=== PATIENT | female | born 1980 | race Caucasian/White ===

== ENCOUNTER 2017-05-15 01:51 | Emergency (ER) | payer SELFPAY ==
--- NOTE | 2017-05-15 03:27 | ER Document Report ---
ED Medical Screen (RME) - General Chief Complaint: Low Back Pain Stated Complaint: BACK PAIN Time Seen by Provider: 05/15/17 03:26 Mode of Arrival: Ambulatory Information source: Patient Notes: 2-year-old female presents to ED for back pain and pelvic pain. She states she 6 weeks . She is 10 para 6 with 3 miscarriages. She denies any vaginal bleeding. She states she does have some nausea no vomiting. States she usually takes Zofran for her nausea and . Has not had a confirmation test states she took home test. I have greeted and performed a rapid initial assessment of this patient. A comprehensive ED assessment and evaluation of the patient, analysis of test results and completion of medical decision making process will be conducted by an additional ED providers. TRAVEL OUTSIDE OF THE [place] IN LAST 30 DAYS: No - Related Data Allergies/Adverse Reactions: acetaminophen [From [place]] Adverse Reaction (Verified 09/23/12 11:37) itching hydrocodone bitartrate [From [place]] Adverse Reaction (Verified 09/23/12 11:37) itching Past Medical History Renal/ Medical History: Denies: Hx Peritoneal Dialysis Past Surgical History: Reports: Hx Gynecologic Surgery - D&C, Hx Tonsillectomy - Immunizations Hx Diphtheria, Pertussis, Tetanus Vaccination: Yes Physical Exam - Vital signs Vitals: Temp Pulse Resp BP Pulse Ox 98.5 F 73 16 137/67 H 100 05/15/17 02:07 05/15/17 02:07 05/15/17 02:07 05/15/17 02:07 05/15/17 02:07 Course - Vital Signs Vital signs: Temp Pulse Resp BP Pulse Ox 98.5 F 73 16 137/67 H 100 05/15/17 02:07 05/15/17 02:07 05/15/17 02:07 05/15/17 02:07 05/15/17 02:07
[2017-05-15] MEDS ORDERED: ONDANSETRON 4 MG TAB.RAPDIS PO ONE (03:32)
[2017-05-15 03:33] LABS: APPEARANCE,URINE CLEAR; BILIRUBIN,URINE NEGATIVE (NEGATIVE); GLUCOSE, URINE NEGATIVE (NEGATIVE); KETONES,URINE NEGATIVE (NEGATIVE); LEUKOCYTE ESTERASE,URINE TRACE (NEGATIVE); NITRITE,URINE NEGATIVE (NEGATIVE); PROTEIN,URINE NEGATIVE (NEGATIVE); URINE SPECIFIC GRAVITY 1.026; UROBILINOGEN,URINE NEGATIVE mg/dL (<2.0)
--- NOTE | 2017-05-15 03:57 | ER Document Report ---
ED General - General Chief Complaint: Low Back Pain Stated Complaint: BACK PAIN Time Seen by Provider: 05/15/17 03:26 Mode of Arrival: Ambulatory Notes: There is a 36-year-old female who presents with complaint of and pain in her abdomen and back. No vaginal bleeding. No abnormal discharge. No vomiting. No fevers. This is her 10th . She is 6 kids and has had 3 miscarriages. All 3 of her miscarriages were in the first trimester. Pain started today. No other complaints at this time. TRAVEL OUTSIDE OF THE [place] IN LAST 30 DAYS: No - Related Data Allergies/Adverse Reactions: acetaminophen [From [place]] Adverse Reaction (Verified 09/23/12 11:37) itching hydrocodone bitartrate [From [place]] Adverse Reaction (Verified 09/23/12 11:37) itching Past Medical History - General Information source: Patient - Social History Smoking Status: Unknown if Ever Smoked Frequency of alcohol use: None Drug Abuse: None Family History: Reviewed & Not Pertinent Patient has suicidal ideation: No Patient has homicidal ideation: No Renal/ Medical History: Denies: Hx Peritoneal Dialysis Past Surgical History: Reports: Hx Gynecologic Surgery - D&C, Hx Tonsillectomy - Immunizations Hx Diphtheria, Pertussis, Tetanus Vaccination: Yes Review of Systems - Review of Systems Notes: My Normal Review Basic REVIEW OF SYSTEMS: CONSTITUTIONAL : Denies fever, chills, or sweats. Denies recent illness. RESPIRATORY: Denies cough, cold, or chest congestion. Denies shortness of breath, difficulty breathing, or wheezing. GASTROINTESTINAL: has abdominal pain. Denies nausea, vomiting, or diarrhea. Denies constipation. Last BM: GENITOURINARY: Denies difficulty urinating, painful urination, burning, frequency, or blood in urine. FEMALE GENITOURINARY: No vaginal discharge or bleeding. Currently . Last menstrual period was April 01. MUSCULOSKELETAL: Denies neck or back pain or joint pain or swelling. SKIN: Denies rash or skin lesions. NEUROLOGICAL: Denies altered mental status or loss of consciousness. Denies headache. Denies weakness or paralysis or loss of use of either side. Denies problems with gait or speech. Denies sensory or motor loss. ALL OTHER SYSTEMS REVIEWED AND NEGATIVE. Physical Exam - Vital signs Vitals: Temp Pulse Resp BP Pulse Ox 98.5 F 73 16 137/67 H 100 05/15/17 02:07 05/15/17 02:07 05/15/17 02:07 05/15/17 02:07 05/15/17 02:07 - Notes Notes: General Appearance: Well nourished, alert, cooperative, no acute distress, no obvious discomfort.well appearing. Vitals: reviewed, See vital signs table. Head: no swelling or tenderness to the head Eyes: PERRL, EOMI, Conjuctiva clear Lungs: No wheezing, No rales, No rhonci, No accessory muscle use, good air exchange bilaterally. Heart: Normal rate, Regular rythm, No murmur, no rub Abdomen: Normal BS, soft, No rigidity, mild suprapubic abdominal tenderness to palpation, No guarding, no rebound, no abdominal masses, no organomegaly Extremities: strength 5/5 in all extremities, good pulses in all extremities, no swelling or tenderness in the extremities, no edema. Skin: warm, dry, appropriate color, no rash Neuro: speech clear, oriented x 3, normal affect, responds appropriately to questions. Course - Re-evaluation Re-evalutation: 05/15/17 05:19 Patient has gestational sac, but no IUP as of yet. Her hCG is only 1088. I informed her that this could represent a is not developing appropriately and well and a miscarriage or could just represent very early . I informed her she should return to the ER in 3 days to repeat her hCG level and this will give us a better idea as to what is going on. She does not have large amount of pain. Abdomen is very soft minimally tender. I think ectopic is highly unlikely at this time; however, I informed her that she must return to ER immediately if she has worsening pain, vaginal bleeding, or feels that her symptoms are worsening. Patient agrees with plan and will be discharged home. Dictation of this chart was performed using voice recognition software; therefore, there may be some unintended grammatical errors. - Vital Signs Vital signs: Temp Pulse Resp BP Pulse Ox 98.5 F 73 16 137/67 H 100 05/15/17 02:07 05/15/17 02:07 05/15/17 02:07 05/15/17 02:07 05/15/17 02:07 - Laboratory Result Diagrams: 05/15/17 04:01 Laboratory results interpreted by me: 05/15/17 05/15/17 05/15/17 02:55 04:01 04:01 WBC 14.8 H Absolute Neutrophils 9.3 H Beta HCG, Quant 1089.40 H Urine Blood MODERATE H Ur Leukocyte Esterase TRACE H Discharge - Discharge Clinical Impression: Abdominal pain during Qualifiers: Trimester: first trimester Qualified Code(s): O26.891 - Other specified related conditions, first trimester Condition: Good Disposition: HOME, SELF-CARE Additional Instructions: Currently your HCG level is 1088. We typically do not see a fetus until it is at least 1500 to 2000. Currently we can see a gestational sac on your ultrasound. Since you are early we can not tell if you just has a normal early or if you have an abnormal . Please return to the ER in 3 days so we can recheck your HCG level to see if it is increasing or decreasing. This will help us determine if your is progressing appropriately. Please return to the ER immediately if you have worsening pain, vaginal bleeding , or if you feel unwell. Please take a vitamin everyday.
[2017-05-15 04:19] LABS: ABSOLUTE BASOPHILS # (AUTO) 0.1 10^3/uL (0.0-0.2); ABSOLUTE LYMPHOCYTES (AUTO) 4.7 10^3/uL (0.5-4.7); ABSOLUTE MONOCYTES (AUTO) 0.7 10^3/uL (0.1-1.4); ABSOLUTE NEUT (AUTO) 9.3 10^3/uL (1.7-8.2); BASOPHILS % (AUTO) 0.5 % (0-2); EOSINOPHILS % (AUTO) 0.2 % (0-6); HEMATOCRIT 39.7 % (36.0-47.0); HEMOGLOBIN 13.5 g/dL (12.0-15.5); HGB HCT DIFFERENCE 0.8; LYMPHOCYTES % (AUTO) 31.6 % (13-45); MEAN CORPUSCULAR HEMOGLOBIN 30.7 pg (27.0-33.4); MEAN CORPUSCULAR VOLUME 90 fl (80-97); MONOCYTES % (AUTO) 4.7 % (3-13); RED BLOOD COUNT 4.41 10^6/uL (3.72-5.28); RED CELL DISTRIBUTION WIDTH 12.6 % (11.5-14.0); WHITE BLOOD COUNT 14.8 10^3/uL (4.0-10.5)
--- NOTE | 2017-05-15 05:06 | RADIOLOGY REPORT (SQ) ---
EXAM DESCRIPTION: U/S OB TRANSVAGINAL W/O DOP COMPLETED DATE/TIME: 05/15/2017 4:52 am REASON FOR STUDY: pelvic pain COMPARISON: 02/09/2012. TECHNIQUE: Transvaginal static and realtime grayscale images acquired of the pelvis. Additional carlene cted spectral and color Doppler images recorded. All images stored on PACs. BHCG: Not available. LIMITATIONS: None. FINDINGS: UTERUS: No definite visualized intrauterine . An intrauterine sac measures 0.6 c m in mean sac diameter with likely decidual reaction; if viable gestational age would correspond with 5 weeks and 2 days with an CINTHIA of 01/13/2018. RIGHT ADNEXA: Ovary not identified. No adnexal free fluid. No adnexal masses. LEFT ADNEXA: Ovary not identified. No adnexal free fluid. No adnexal masses. FREE FLUID: None. OTHER: Cervical length is 2.4 cm. Nabothian cysts. EGA: 5 weeks 2 days CINTHIA: 01/13/2018 IMPRESSION: No definite visualized intrauterine . An intrauterine sac measures 0.6 cm in me an sac diameter with likely decidual reaction; if viable gestational age would correspond with 5 week s and 2 days with an CINTHIA of 01/13/2018. ECTOPIC CANNOT BE EXCLUDED. FOLLOW-UP ULTRASOUND AND SERIAL BHCG LEVELS STRONGLY RECOMMENDED TO ACCURATELY ASSESS STATU S. TECHNICAL DOCUMENTATION: JOB ID: [id number] [employer]- All Rights Reserved
[2017-05-15 05:21] VITALS: BP 124/70
== END 2017-05-15 05:18 | disposition home or self-care (01) ==
LOC: ER 01:51
DX: O26.891 Other specified pregnancy related conditions, first trimester (principal); M54.5 Low back pain; Z88.6 Allergy status to analgesic agent
CPT/HCPCS: 99284; 36415; 84702; 85025; 81001; 76817; S0119

== ENCOUNTER 2018-01-16 10:18 | Outpatient (CLI) | payer MEDICAID ==
--- NOTE | 2018-01-16 11:07 | Non Stress Test Report ---
Non Stress Test Datetime Report Generated by CPN: 01/16/2018 11:07 DEMOGRAPHIC EGA NST: 34.4 INDICATION Indication for Study: Diabetes Mellitus MONITORING Monitor Explained: Monitor Explained; Test Explained; Patient Verbalized Understanding Time on Monitor: 01/16/2018 10:27 Time off Monitor: 01/16/2018 10:57 NST Duration: 30 NST INTERVENTIONS NST Interventions: PO Hydration; Reposition Patient Physician Notified NST: A Emmel CNM BABY A: [id number] BABY A Movement : Present Contraction Frequency : x0 FHR Baseline : 145 Accelerations : 15X15 Decelerations : None Variability : Moderate 6-25bpm NST Review: Meets Criteria for Reactive NST NST Review and Verified By : Celestino Wan RN NST Results: Reactive NST REPORT Report Trigger: Send Report
== END 2018-01-16 11:05 | disposition home or self-care (01) ==
LOC: LC 10:18
PROVIDERS: ATTEND Obstetrics & Gynecology
PROC: 4A1HXCZ Monitoring of Products of Conception, Cardiac Rate, External Approach (ICD-10-PCS; principal; 2018-01-16)
DX: O24.419 Gestational diabetes mellitus in pregnancy, unspecified control (principal); O09.523 Supervision of elderly multigravida, third trimester; Z3A.34 34 weeks gestation of pregnancy
CPT/HCPCS: 59025

== ENCOUNTER 2018-01-18 15:54 | Outpatient (CLI) | payer MEDICAID ==
--- NOTE | 2018-01-18 17:38 | Non Stress Test Report ---
Non Stress Test Datetime Report Generated by CPN: 01/18/2018 17:38 DEMOGRAPHIC EGA NST: 34.6 INDICATION Indication for Study: Ordered by Provider MONITORING Monitor Explained: Monitor Explained; Test Explained; Patient Verbalized Understanding Time on Monitor: 01/18/2018 16:13 Time off Monitor: 01/18/2018 16:36 NST Duration: 23 NST INTERVENTIONS NST Interventions: PO Hydration; Reposition Patient Physician Notified NST: A. Campos, CNM, provider reviewed BABY A: [id number] BABY A Movement : Present Contraction Frequency : None FHR Baseline : 145 Accelerations : 15X15 Decelerations : None Variability : Moderate 6-25bpm NST Review: Meets Criteria for Reactive NST NST Review and Verified By : Gricel Camp RNC NST Results: Reactive NST REPORT Report Trigger: Send Report
[2018-01-18 17:40] LABS: URINE CREATININE 219.6 mg/dL (16-327); URINE PROTEIN 10.7 mg/dL (<12)
[2018-01-18 17:47] LABS: ABSOLUTE BASOPHILS # (AUTO) 0.1 10^3/uL (0.0-0.2); ABSOLUTE MONOCYTES (AUTO) 0.6 10^3/uL (0.1-1.4); ABSOLUTE NEUT (AUTO) 9.2 10^3/uL (1.7-8.2); BASOPHILS % (AUTO) 0.5 % (0-2); EOSINOPHILS % (AUTO) 0.2 % (0-6); HEMATOCRIT 35.5 % (36.0-47.0); HEMOGLOBIN 12.6 g/dL (12.0-15.5); LYMPHOCYTES % (AUTO) 23.5 % (13-45); MEAN CORPUSCULAR HEMOGLOBIN 31.1 pg (27.0-33.4); MEAN CORPUSCULAR HGB CONC 35.5 g/dL (32.0-36.0); MEAN CORPUSCULAR VOLUME 88 fl (80-97); MONOCYTES % (AUTO) 4.7 % (3-13); PLATELET COUNT 230 10^3/uL (150-450); RED BLOOD COUNT 4.05 10^6/uL (3.72-5.28); RED CELL DISTRIBUTION WIDTH 12.9 % (11.5-14.0); SEGMENTED NEUTROPHILS % (AUTO) 71.1 % (42-78); TOTAL CELLS COUNTED % (AUTO) 100 %; WHITE BLOOD COUNT 12.9 10^3/uL (4.0-10.5)
[2018-01-18 18:13] LABS: ALANINE AMINOTRANSFERASE 26 U/L (9-52); ALKALINE PHOSPHATASE 91 U/L (38-126); ANION GAP 7 (5-19); ASPARTATE AMINO TRANSFERASE 16 U/L (14-36); BILIRUBIN,DIRECT 0.2 mg/dL (0.0-0.4); BILIRUBIN,TOTAL 0.2 mg/dL (0.2-1.3); BLOOD UREA NITROGEN 7 mg/dL (7-20); CALCIUM 9.2 mg/dL (8.4-10.2); CARBON DIOXIDE 21 mmol/L (22-30); CHLORIDE 107 mmol/L (98-107); GLUCOSE 75 mg/dL (75-110); LDH 311 U/L (313-618); POTASSIUM 3.7 mmol/L (3.6-5.0); SODIUM 135.4 mmol/L (137-145); TOTAL PROTEIN 5.6 g/dL (6.3-8.2)
[2018-01-18 18:23] LABS: APPEARANCE,URINE SLIGHTLY-CLOUDY; BILIRUBIN,URINE NEGATIVE (NEGATIVE); COLOR,URINE YELLOW; GLUCOSE, URINE NEGATIVE (NEGATIVE); KETONES,URINE NEGATIVE (NEGATIVE); LEUKOCYTE ESTERASE,URINE NEGATIVE (NEGATIVE); NITRITE,URINE NEGATIVE (NEGATIVE); PROTEIN,URINE 30 mg/dL (NEGATIVE); URINE SPECIFIC GRAVITY 1.029
[2018-01-18 18:28] LABS: URINE AMPHETAMINES SCREEN NEGATIVE; URINE BARBITURATES SCREEN NEGATIVE; URINE BENZODIAZEPINES SCREEN NEGATIVE; URINE COCAINE SCREEN NEGATIVE; URINE MARIJUANA (THC) SCREEN NEGATIVE; URINE METHADONE SCREEN NEGATIVE; URINE PHENCYCLIDINE SCREEN NEGATIVE
== END 2018-01-18 18:36 | disposition home or self-care (01) ==
LOC: LC 15:54
PROVIDERS: ATTEND Student in an Organized Health Care Education/Training Program
PROC: 4A1HXCZ Monitoring of Products of Conception, Cardiac Rate, External Approach (ICD-10-PCS; principal; 2018-01-18)
DX: O14.93 Unspecified pre-eclampsia, third trimester (principal); O24.419 Gestational diabetes mellitus in pregnancy, unspecified control; Z3A.34 34 weeks gestation of pregnancy
CPT/HCPCS: 36415; 59025; 80053; 80307; 81001; 82570; 83615; 84156; 84550; 85025

== ENCOUNTER 2018-02-19 06:31 | Inpatient (IN) | payer MEDICAID ==
[2018-02-19] MEDS ORDERED: RINGERS SOLUTION,LACTATED 300 ML IV ONE (06:49)
[2018-02-19] MEDS ORDERED: OXYTOCIN/NORMAL SALINE 20 UNIT/1,000 ML RTUINJ IV PRN ×2 (06:49→17:57)
[2018-02-19] MEDS ORDERED: RINGERS SOLUTION,LACTATED 1,000 ML IV PRN (06:49)
--- NOTE | 2018-02-19 06:59 | Admission Physical ---
Datetime Report Generated by CPN: 02/19/2018 06:58 CURRENT ADMISSION Chief Complaint: Scheduled Induction of Labor Indication for Induction: Maternal Diabetes Indication for Induction- Other: AMA Admit Impression : Term, Intrauterine ; Induction of Labor Admit Plan: Admit to Unit; Initiate Labor Induction Protocol ALLERGIES Medication Allergies: Yes Medication Allergies: hydrocodone bitartrate/MO/itching (02/19/2018); acetaminophen/MO/itching (02/19/2018) Latex: No Latex Allergies OBSTETRICAL HISTORY EDC: 02/23/2018 00:00 : 11 Para: 6 Term: 6 : 0 SAB: 4 IAB: 0 Ectopic: 0 Livin Cesareans: 0 VBACs: 0 Multiple Births: 0 Gestational Diabetes: Yes Rh Sensitization: No Incompetent Cervix: No NIKI: No Infertility: No ART Treatment: No Uterine Anomaly: No IUGR: No Hx Previous C/S: No Macrosomia: No Hx Loss/Stillborn: No PIH: Yes Hx : No Placenta Previa/Abruption: No Depression/PP Depression: Yes PTL/PROM: No Post Hemorrhage: No Current Procedures: Ultrasound; NST SEE RECORDS Alcohol: No Marijuana : No Cocaine: No Other Illicit Drugs: No Cigarettes: Former Smoker. [id number] MEDICAL HISTORY Diabetes: Yes Diabetes Type: Gestational Diabetes Blood Transfusion: No Pulmonary Disease (Asthma, TB): No Breast Disease: No Hypertension: No Labor Relations Manager Surgery: No Heart Disease: No Hosp/Surgery: Yes Autoimmune Disorder: No Anesthetic Complications: No Kidney Disease: No Abnormal Pap Smear: No Neuro/Epilepsy: No Psychiatric Disorders: No Other Medical Diseases: No Hepatitis/Liver Disease: No Significant Family History: No Varicosities/Phlebitis: No Trauma/Violence : No Thyroid Dysfunction: No Medical History Comments: tonsillectomy 1989, D_C 2005 INFECTIOUS HISTORY Gonorrhea: No Genital Herpes: No Chlamydia: No Tuberculosis: No Syphilis: No Hepatitis: No HIV/AIDS Exposure: No Rash or Viral Illness: No HPV: No PHYSICAL EXAM General: Normal HEENT: Normal Neurologic: Normal Thyroid: Normal Heart: Normal Lungs: Normal Breast: Normal Back: Normal Abdomen: Normal Genitourinary Exam: Normal Extremities: Normal DTRs: Normal Pelvic Type: Adequate Vital Signs: Reviewed; Within Normal Limits VAGINAL EXAM Dilatation: 2 Effacement: 50 Station: -2 MEMBRANES Pooling: Negative Membranes: Intact FETUS A EGA: 39.3 Monitoring: External US FHR- Baseline: 130 Variability: Moderate 6-25bpm Accelerations: 15X15 Decelerations: None FHR Category: Category I Estimated Weight (gm): 3700 Presentation: Vertex PLANS FOR LABOR AND DELIVERY Labor and Delivery: Placenta Request Pain Management: Epidural Feeding Preference: Breast Benefit of Breast Feed Discussed: Yes Circumcision: N/A INFORMED CONSENT Signature: with User ID: [email or web address]
[2018-02-19 07:23] LABS: ABSOLUTE BASOPHILS # (AUTO) 0.1 10^3/uL (0.0-0.2); ABSOLUTE LYMPHOCYTES (AUTO) 2.4 10^3/uL (0.5-4.7); ABSOLUTE MONOCYTES (AUTO) 0.4 10^3/uL (0.1-1.4); ABSOLUTE NEUT (AUTO) 7.2 10^3/uL (1.7-8.2); BASOPHILS % (AUTO) 0.9 % (0-2); EOSINOPHILS % (AUTO) 0.4 % (0-6); HEMATOCRIT 35.6 % (36.0-47.0); HEMOGLOBIN 12.5 g/dL (12.0-15.5); LYMPHOCYTES % (AUTO) 23.5 % (13-45); MEAN CORPUSCULAR HEMOGLOBIN 30.7 pg (27.0-33.4); MEAN CORPUSCULAR VOLUME 88 fl (80-97); PLATELET COUNT 200 10^3/uL (150-450); RED BLOOD COUNT 4.07 10^6/uL (3.72-5.28); RED CELL DISTRIBUTION WIDTH 13.4 % (11.5-14.0); SEGMENTED NEUTROPHILS % (AUTO) 71.2 % (42-78); TOTAL CELLS COUNTED % (AUTO) 100 %; WHITE BLOOD COUNT 10.2 10^3/uL (4.0-10.5)
[2018-02-19 07:42] LABS: APPEARANCE,URINE CLOUDY; BILIRUBIN,URINE NEGATIVE (NEGATIVE); COLOR,URINE YELLOW; GLUCOSE, URINE NEGATIVE (NEGATIVE); KETONES,URINE NEGATIVE (NEGATIVE); LEUKOCYTE ESTERASE,URINE TRACE (NEGATIVE); NITRITE,URINE NEGATIVE (NEGATIVE); PROTEIN,URINE 100 mg/dL (NEGATIVE); URINE SPECIFIC GRAVITY 1.025; UROBILINOGEN,URINE NEGATIVE mg/dL (<2.0)
[2018-02-19 07:57] LABS: URINE AMPHETAMINES SCREEN NEGATIVE; URINE BARBITURATES SCREEN NEGATIVE; URINE BENZODIAZEPINES SCREEN NEGATIVE; URINE COCAINE SCREEN NEGATIVE; URINE MARIJUANA (THC) SCREEN NEGATIVE; URINE METHADONE SCREEN NEGATIVE; URINE PHENCYCLIDINE SCREEN NEGATIVE
[2018-02-19] MEDS ORDERED: OXYTOCIN/NORMAL SALINE 20 UNIT/1,000 ML RTUINJ ONE ×2 (08:58→18:42)
[2018-02-19] MEDS ORDERED: MISOPROSTOL 0.2 MG TABLET ONE (08:58)
[2018-02-19] MEDS ORDERED: LIDOCAINE 1% INJ-PF (10 MG/ML) 30 ML SDV ONE (08:58)
--- NOTE | 2018-02-19 12:59 | L&D Progress Notes ---
PROGRESS NOTES Datetime Report Generated by CPN: 02/19/2018 12:59 PROGRESS NOTE Impression: Reassuring Heart Rate Procedures: Artificial ROM Plan: Induction Informed Consent Obtained: Vaginal Delivery Vital Signs : Reviewed Comment: Pt coping well with ctx AROM, clear Continue pit Anticipate VAGINAL EXAM Dilatation: 3 Dilatation: 2 Effacement: 50 Effacement: 50 Station: -2 Station: -2 Contractions: 2-4 MEMBRANES Pooling: Negative Membranes: Ruptured Membranes: Intact Amniotic Fluid Color: Clear FETUS A FHR - Baseline: 140 Variability: Moderate 6-25bpm Accelerations: 15X15 Decelerations: None FHR Category: Category I : 39.3 Estimated Weight (gm): 3700 Presentation: Vertex SIGNATURE SIGNATURE: [id number] SIGNATURE: [id number] SIGNATURE: [id number] SIGNATURE: [id number] Assignment: Orlin Tate MD Signature: with User ID: [email or web address] : with User ID: Bobby
[2018-02-19] MEDS ORDERED: FENTANYL/BUPIVACAINE/NS/PF 200 MCG/100 ML RTUINJ EPI ONE (13:50)
[2018-02-19] MEDS ORDERED: PHENYLEPHRINE HCL INJ/PF 10 MG/1 ML SDV ONE (13:50)
[2018-02-19] MEDS ORDERED: EPHEDRINE SULFATE INJ 50 MG/1 ML AMPULE ONE (13:50)
[2018-02-19] MEDS ORDERED: FENTANYL CITRATE INJ/PF 100 MCG/2 ML AMPUL ONE (13:50)
[2018-02-19] MEDS ORDERED: BUPIVACAINE HCL 0.25 % INJ/PF (2.5 MG/1 ML) 30 ML VIAL ONE (13:51)
[2018-02-19] MEDS ORDERED: DIPHENHYDRAMINE HCL 25 MG CAPSULE ONE (16:43)
[2018-02-19] MEDS ORDERED: ACETAMINOPHEN WITH CODEINE #3 TABLET PO PRN (17:57)
[2018-02-19] MEDS ORDERED: ZOLPIDEM TARTRATE 5 MG TABLET PO PRN (17:57)
[2018-02-19] MEDS ORDERED: DIBUCAINE 1% OINTMENT 28 GM TP PRN (17:57)
[2018-02-19] MEDS ORDERED: BENZOCAINE/MENTHOL AEROSOL SPRAY 56 ML TOP PRN (17:57)
[2018-02-19] MEDS ORDERED: MEASLES,MUMPS&RUBELLA VACC/PF 0.5 ML VIAL SUBCUT PRN (17:57)
[2018-02-19] MEDS ORDERED: DIPH/PERTUSS(ACELL)/TETANUS VAC/PF 0.5 ML SYR (>=10YO) IM PRN (17:57)
--- NOTE | 2018-02-19 19:45 | Delivery Summary ---
Del Sum A-C Datetime Report Generated by CPN: 02/19/2018 19:44 DELIVERY PERSONNEL DELIVERY PERSONNEL: [id number] Delivery Doctor:: Viviane Conner CNM Nurse Yard Manager Certified:: Viviane Conner CNM Labor and Delivery Nurse:: Alex Schmidt RNrecord retrieval specialist Nurse:: ZOFIA Pak Nursery Nurse:: Anan Villatoro RN Concession Manager/FURNITURE FINISHER: Zaira Luz, CHIEF LOCK TENDER OPERATOR MATERNAL INFORMATION Delivery Anesthesia: Epidural Medications After Delivery: Pitocin Bolus-Please Comment; Other-Please Comment Meds After Delivery Comment: pitocin 20 units in 1 L NS bolusing per order, cytotec 1000 mcg placed rectally per provider Estimated Blood Loss (ml): 200 Maternal Complications: Prolonged Second Stage > 2 Hrs Provider Comments: of viable female , head delivered, loose nuchal noted and reduced, shoulders and body delivered without difficulty, with spontaneous cry and respirations to maternal abdomen, cord clamped X2 after 2 min delay, cut free by pts , placenta delivered with manual expression, via pisano, appears intact, 3 VC, vagina and perineum inspected, no lacerations noted, hemostasis acheived with external fundal massage, and IV pitocin, 1000 mcg rectal cytotec given prophylacticly. Mother and baby in stable condition, routine pp care. LABOR SUMMARY EDC: 02/23/2018 00:00 No. Babies in Womb: 1 Attempted: No Labor Anesthesia: Epidural LABOR INFORMATION Reason for Induction: Maternal Diabetes Onset of Labor: 02/19/2018 15:06 Complete Dilatation: 02/19/2018 17:25 Cervical Ripening Agents: Cytotec @ 1000 mcg AR Other Ripening Agents: n/a Oxytocin: Induction Group B Beta Strep: Negative Antibiotics # of Doses: n/a Antibiotics Time of Last Dose: n/a Name of Antibiotic Given: n/a Steroids Given: None Reason Steroids Not Administered: Not Applicable Other Reason Not Administered: n/a MEMBRANES Membranes Rupture Method: Artificial Rupture of Membranes: 02/19/2018 12:55 Length of Rupture (hr): 4.67 Amniotic Fluid Color: Clear Amniotic Fluid Amount: Moderate Amniotic Fluid Odor: Normal STAGES OF LABOR Stage 1 hr: 2 Stage 1 min: 19 Stage 2 hr: 0 Stage 2 min: 10 Stage 3 hr: 0 Stage 3 min: 5 Total Time in Labor hr: 2 Total Time in Labor min: 34 VAGINAL DELIVERY Episiotomy: None Laceration #1: None Laceration Extension #1: N/A Laceration #2: None Laceration #3: None Laceration Repair: Not Applicable Sponge Count Correct: N/A Sharps Count Correct: N/A CSECTION DELIVERY Primary Indication: N/A Secondary Indication: N/A CSection Incidence: N/A Labor: N/A Elective: N/A CSection Incision: N/A BABY A INFORMATION Infant Delivery Date/Time: 02/19/2018 17:35 Method of Delivery: Vaginal Born in Route : No : N/A Forceps: N/A Vacuum Extraction: N/A Shoulder Dystocia : Yes PRESENTATION/POSITION BABY A Presentation: Cephalic Cephalic Presentation: Vertex Vertex Position: Right Occipital Anterior Breech Presentation: N/A PLACENTA INFORMATION BABY A Placenta Delivery Time : 02/19/2018 17:40 Placenta Method of Delivery: Expressed Placenta Status: Delivered SCORES BABY A Heart Rate 1 min: >100 bpm Resp Effort 1 min: Good Cry Reflex Irritability 1 min: Cough or Sneeze or Pulls Away Muscle Tone 1 min: Active Motion Color 1 min: Blue/Pale Resuscitation Effort 1 min: Tactile Stimulation SCORE 1 MIN: 8 Heart Rate 5 min: >100 bpm Resp Effort 5 min: Good Cry Reflex Irritability 5 min: Cough or Sneeze or Pulls Away Muscle Tone 5 min: Active Motion Color 5 min: Body [place], Extremities Blue SCORE 5 MIN: 9 Resuscitation Effort 10 min: N/A INFANT INFORMATION BABY A Gestational Age at Delivery: 39.3 Gestational Status: Full Term- 39- 40.6 Weeks Outcome : Liveborn Condition : Stable Infant Sex: Female IDENTIFICATION BABY A Infant Verification Date/Time: 02/19/2018 17:57 ID Band Number: [id number] Mother's Name Verified: Yes Infant RN Verifying Infant: J, RN and L.Az, RN WEIGHT/LENGTH BABY A Birthweight (gm): 2920 Infant Weight (lb): 6 Weight (oz): 7 Infant Length (in): 19.00 Length (cm): 48.26 CORD INFORMATION BABY A No. Cord Vessels: 3 Nuchal Cord : Around Neck x1, Loose Cord Blood Taken: Yes-For Storage (Mom's Blood type +) Suction: None ASSESSMENT BABY A Infant Complications: Multiple Variable Decels; Other Complications- Other: nuchal cord with occult loop noted Physical Findings at Delivery: Puncture Wound from Scalp Electrode Respirations: Appears Normal Skin to Skin: Yes Skin to Skin Time (min): 60 Hospital Pharmacy Director/ALS Called : No Care By: Anna loza RN Transferred To: Remains with Mother BABY B INFORMATION : N/A SIGNATURES Assignment: Orlin Tate MD Signature: with User ID: [email or web address] : with User ID: Bobby
[2018-02-19] MEDS: ACETAMINOPHEN WITH CODEINE #3 TABLET PO PRN (20:39)
[2018-02-19] MEDS: IBUPROFEN 800 MG TABLET PO SCH (23:33)
[2018-02-20] MEDS: ACETAMINOPHEN WITH CODEINE #3 TABLET PO PRN ×3 (00:45→17:46)
[2018-02-20] MEDS: IBUPROFEN 800 MG TABLET PO SCH ×3 (05:11→21:43)
[2018-02-20 07:32] LABS: HEMOGLOBIN 10.7 g/dL (12.0-15.5); MEAN CORPUSCULAR HEMOGLOBIN 30.6 pg (27.0-33.4); MEAN CORPUSCULAR HGB CONC 34.7 g/dL (32.0-36.0); MEAN CORPUSCULAR VOLUME 88 fl (80-97); PLATELET COUNT 187 10^3/uL (150-450); RED BLOOD COUNT 3.51 10^6/uL (3.72-5.28); RED CELL DISTRIBUTION WIDTH 13.1 % (11.5-14.0); WHITE BLOOD COUNT 12.7 10^3/uL (4.0-10.5)
[2018-02-20] MEDS: SENNOSIDES/DOCUSATE 8.6-50 MG 1 EACH TABLET PO SCH (09:38)
[2018-02-20] MEDS: FERROUS SULFATE 325 MG TABLET PO SCH ×2 (09:38→17:44)
[2018-02-20] MEDS: PRENATAL VITAMIN W DHA CAPSULE PO SCH (09:38)
[2018-02-20] MEDS: DOCUSATE SODIUM 100 MG CAPSULE PO SCH ×2 (09:39→17:44)
--- NOTE | 2018-02-20 10:57 | PDOC PROGRESS REPORT ---
Subjective-OB Progress Note for:: 02/20/18 Subjective: s/p day #1 Pt doing well, states lochia is stable, pain well controlled, voiding without difficulty, bonding with baby. Physical Exam (OB) Vital Signs: Temp Pulse Resp BP Pulse Ox 97.6 F 72 16 126/78 H 100 02/20/18 08:36 02/20/18 08:36 02/20/18 08:36 02/20/18 08:36 02/20/18 08:36 Intake & Output 02/19/18 02/20/18 02/21/18 06:59 06:59 06:59 Weight 96.2 kg - Lochia Lochia Amount: Small 10-25 ml Lochia Color: Rubra/Red - Abdomen Description: Soft, Round Hernia Present: No Fundal Description: Firm, Midline Fundal Height: u/u - u/2 Objective-Diagnostic Laboratory: 02/20/18 07:14 02/20/18 07:14 WBC 12.7 H RBC 3.51 L Hgb 10.7 L Hct 31.0 L MCV 88 MCH 30.6 MCHC 34.7 RDW 13.1 Plt Count 187 Assessment and Plan(PN) - Assessment and Plan (1) Vaginal delivery Is this a current diagnosis for this admission?: Yes Plan: routine pp care (2) Acute blood loss anemia Is this a current diagnosis for this admission?: Yes Plan: ferrous sulfate increase dietary iron (3) Gestational diabetes Qualifiers: Trimester: third trimester Is this a current diagnosis for this admission?: Yes Plan: yearly follow up (4) Depression Qualifiers: Depression Type: unspecified Qualified Code(s): F32.9 - Major depressive disorder, single episode, unspecified Is this a current diagnosis for this admission?: No Plan: d/c planning - Time Spent with Patient Time with patient: Less than 15 minutes Critical Time spent with patient: Less than 15 minutes Medications reviewed and adjusted accordingly: Yes - Disposition Anticipated Discharge: Home Within: within 24 hours
[2018-02-21] MEDS: IBUPROFEN 800 MG TABLET PO SCH ×2 (06:12→13:31)
[2018-02-21 09:10] VITALS: BP 133/75
[2018-02-21] MEDS: PRENATAL VITAMIN W DHA CAPSULE PO SCH (10:31)
[2018-02-21] MEDS: FERROUS SULFATE 325 MG TABLET PO SCH (10:31)
[2018-02-21] MEDS: DOCUSATE SODIUM 100 MG CAPSULE PO SCH (10:31)
[2018-02-21] MEDS: SENNOSIDES/DOCUSATE 8.6-50 MG 1 EACH TABLET PO SCH (10:32)
--- NOTE | 2018-02-21 12:37 | PDOC PROGRESS REPORT ---
Subjective-OB Progress Note for:: 02/21/18 Subjective: Ready to go home. Physical Exam (OB) Vital Signs: Temp Pulse Resp BP Pulse Ox 98.4 F 73 17 133/75 H 99 02/21/18 11:33 02/21/18 11:33 02/21/18 11:33 02/21/18 11:33 02/21/18 11:33 Intake & Output 02/20/18 02/21/18 02/22/18 06:59 06:59 06:59 Intake Total 400 350 Balance 400 350 - PIH/Pre-Eclampsia DTR's: 2 + Headache: Absent Epigastric Pain: No Visual Changes: No - Lochia Lochia Amount: Scant < 10 ml Lochia Color: Rubra/Red - Abdomen Description: Soft, Round Hernia Present: No Bowel Sounds: Normoactive Flatus Presence: Present Stool: Yes Fundal Description: Firm, Midline Fundal Height: u/u - u/2 Objective-Diagnostic Laboratory: 02/20/18 07:14 Assessment and Plan(PN) - Time Spent with Patient Medications reviewed and adjusted accordingly: Yes - Disposition Anticipated Discharge: Home
--- NOTE | 2018-02-21 12:48 | PDOC DISCHARGE SUMMARY ---
Final Diagnosis Discharge Date: 02/21/18 - Final Diagnosis (1) AMA (advanced maternal age) multigravida 35+ Is this a current diagnosis for this admission?: Yes (2) Acute blood loss anemia Is this a current diagnosis for this admission?: Yes (3) Depression Is this a current diagnosis for this admission?: Yes (4) Gestational diabetes Is this a current diagnosis for this admission?: Yes (5) Vaginal delivery Is this a current diagnosis for this admission?: Yes Discharge Data - Discharge Medication Prescriptions: Ibuprofen [Motrin 800 mg Tablet] 800 mg PO Q8 #30 tablet Home Medications: Vit No.129/Iron/Folic [ One Daily Tablet] 1 tab PO DAILY Ibuprofen [Motrin 800 mg Tablet] 800 mg PO Q8 #30 tablet 02/21/18 Gestational Age: 39.3 wks Reason(s) for Admission: Induction of Labor, Gestional Diabetes, Advanced Maternal Age Procedures: Ultrasound Intrapartum Procedure(s): Spontaneous Vaginal Delivery - Green Data Baby 1 Female at 1 minute: 8 at 5 minutes: 9 Weight: 2.92 kg Home with Mother: Yes Complications: No - Diagnosis Test Laboratory: Temp Pulse Resp BP Pulse Ox 98.4 F 73 17 133/75 H 99 02/21/18 11:33 02/21/18 11:33 02/21/18 11:33 02/21/18 11:33 02/21/18 11:33 02/19/18 02/19/18 02/20/18 07:03 07:30 07:14 RBC 4.07 3.51 L Hgb 12.5 10.7 L Hct 35.6 L 31.0 L Urine Opiates Screen NEGATIVE - Discharge information/Instructions Discharge Activity: Activity As Tolerated, Balance Activity w/Rest, Pelvic Rest , Slowly Increase Activity, No tub bath Discharge Diet: Regular Disposition: HOME, SELF-CARE Follow up with: [facility] in: 4, Weeks
== END 2018-02-21 16:00 | disposition home or self-care (01) | DRG 775 ==
LOC: LR 06:31 → 2S 19:55
PROVIDERS: ADMIT Obstetrics & Gynecology; ATTEND Obstetrics & Gynecology
PROC: 10E0XZZ Delivery of Products of Conception, External Approach (ICD-10-PCS; principal; 2018-02-19)
PROC: 3E033VJ Introduction of Other Hormone into Peripheral Vein, Percutaneous Approach (ICD-10-PCS; 2018-02-19)
PROC: 10907ZC Drainage of Amniotic Fluid, Therapeutic from Products of Conception, Via Natural or Artificial Opening (ICD-10-PCS; 2018-02-19)
PROC: 4A1HXCZ Monitoring of Products of Conception, Cardiac Rate, External Approach (ICD-10-PCS; 2018-02-19)
PROC: 4A1H7CZ Monitoring of Products of Conception, Cardiac Rate, Via Natural or Artificial Opening (ICD-10-PCS; 2018-02-19)
PROC: 10H073Z Insertion of Monitoring Electrode into Products of Conception, Via Natural or Artificial Opening (ICD-10-PCS; 2018-02-19)
DX: O24.429 Gestational diabetes mellitus in childbirth, unspecified control (principal); D62 Acute posthemorrhagic anemia; O99.02 Anemia complicating childbirth; O99.344 Other mental disorders complicating childbirth; F32.9 Major depressive disorder, single episode, unspecified; O63.1 Prolonged second stage (of labor); O69.81X0 Labor and delivery complicated by cord around neck, without compression, not applicable or unspecified; Z88.6 Allergy status to analgesic agent; Z87.891 Personal history of nicotine dependence; Z3A.39 39 weeks gestation of pregnancy; Z37.0 Single live birth
CPT/HCPCS: 36415; 80307; 81005; 85025; 85027; 86592; 86850; 86900; 86901; 90715; 94760; J2370; J2590; J3010; J3490

== ENCOUNTER 2018-02-24 14:12 | Inpatient (IN) | payer MEDICAID ==
[2018-02-24] MEDS ORDERED: HYDRALAZINE HCL INJ/PF 20 MG/1 ML SDV IV ONE (14:33)
--- NOTE | 2018-02-24 14:35 | ER Document Report ---
ED Medical Screen (RME) - General Chief Complaint: Headache Stated Complaint: HEADACHE Time Seen by Provider: 02/24/18 14:26 Notes: RME DISCLOSURE I have seen this patient as part of a Rapid Medical Evaluation and, if applicable, placed any initially appropriate orders. The patient will be seen and fully evaluated, including a full history and physical exam, by a provider ( in Main ED or Fast Track) when a room becomes available. 37-year-old female G 11 P7 recently delivered 5 days ago here with complaints of occipital headache that started earlier this morning constant nonradiating not worse with light or sound. She has had some blurry vision and lightheadedness but no numbness weakness syncope. She has not taken anything for the symptoms. She has a prior history of preeclampsia with a previous that did resolve after she delivered her child. She does not have a history of patterned regular headaches. She denies any abdominal pain nausea vomiting diarrhea chest pain shortness of breath. NOTE: Repeat blood pressure in [facility] is 183 systolic TRAVEL OUTSIDE OF THE [place] IN LAST 30 DAYS: No - Related Data Allergies/Adverse Reactions: hydrocodone bitartrate [From [facility]] Adverse Reaction (Intermediate, Verified 14:13) itching Past Medical History - Social History Chew tobacco use (# tins/day): No Frequency of alcohol use: None Drug Abuse: None Renal/ Medical History: Denies: Hx Peritoneal Dialysis Past Surgical History: Reports: Hx Gynecologic Surgery - D&C, Hx Tonsillectomy - Immunizations Hx Diphtheria, Pertussis, Tetanus Vaccination: Yes Physical Exam - Vital signs Vitals: Temp Pulse Resp BP Pulse Ox 97.9 F 66 20 169/81 H 99 02/24/18 14:17 02/24/18 14:17 02/24/18 14:17 02/24/18 14:02/24/18 14:17 Course - Vital Signs Vital signs: Temp Pulse Resp BP Pulse Ox 97.9 F 66 20 169/81 H 99 02/24/18 14:17 02/24/18 14:17 02/24/18 14:17 02/24/18 14:17 02/24/18 14:17
[2018-02-24] MEDS ORDERED: MAGNESIUM SULFATE/D5W 1 GM/100 ML RTUPB IV ONE (14:37)
[2018-02-24 15:26] LABS: ABSOLUTE EOSINOPHILS # (AUTO) 0.1 10^3/uL (0.0-0.6); ABSOLUTE MONOCYTES (AUTO) 0.4 10^3/uL (0.1-1.4); ABSOLUTE NEUT (AUTO) 7.4 10^3/uL (1.7-8.2); BASOPHILS % (AUTO) 0.1 % (0-2); EOSINOPHILS % (AUTO) 1.3 % (0-6); HEMATOCRIT 31.7 % (36.0-47.0); INTERNATIONAL RATION (INR) 0.89; LYMPHOCYTES % (AUTO) 20.4 % (13-45); MEAN CORPUSCULAR HEMOGLOBIN 30.7 pg (27.0-33.4); MEAN CORPUSCULAR HGB CONC 34.5 g/dL (32.0-36.0); MEAN CORPUSCULAR VOLUME 89 fl (80-97); MONOCYTES % (AUTO) 4.4 % (3-13); PLATELET COUNT 319 10^3/uL (150-450); PROTHROMBIN TIME 12.5 SEC (11.4-15.4); RED BLOOD COUNT 3.56 10^6/uL (3.72-5.28); RED CELL DISTRIBUTION WIDTH 13.3 % (11.5-14.0); SEGMENTED NEUTROPHILS % (AUTO) 73.8 % (42-78); TOTAL CELLS COUNTED % (AUTO) 100 %
[2018-02-24] MEDS ORDERED: MAGNESIUM SULFATE 20 GM/500 ML RTUINJ IV PRN ×2 (15:26→18:03)
[2018-02-24 15:27] LABS: FIBRINOGEN 356 mg/dL (209-497); PARTIAL THROMBOPLASTIN TIME 27.2 SEC (23.5-35.8)
--- NOTE | 2018-02-24 15:33 | ER Document Report ---
ED General - General Chief Complaint: Headache Stated Complaint: HEADACHE Time Seen by Provider: 02/24/18 14:26 Notes: The patient is a 37-year-old female, delivered 5 days ago, presents with hypertension and blurry vision. She had an induction and vaginal delivery due to gestational diabetes. Patient has a history of preeclampsia during a previous . She denies focal weakness, numbness, tingling, abdominal pain, nausea, vomiting, vaginal discharge, neck pain or ataxia. TRAVEL OUTSIDE OF THE [place] IN LAST 30 DAYS: No - Related Data Allergies/Adverse Reactions: hydrocodone bitartrate [From [employer]] Adverse Reaction (Intermediate, Verified 14:13) itching Past Medical History - General Information source: Patient - Social History Smoking Status: Never Smoker Chew tobacco use (# tins/day): No Frequency of alcohol use: None Drug Abuse: None Family History: Reviewed & Not Pertinent Patient has suicidal ideation: No Patient has homicidal ideation: No Renal/ Medical History: Denies: Hx Peritoneal Dialysis Past Surgical History: Reports: Hx Gynecologic Surgery - D&C, Hx Tonsillectomy - Immunizations Hx Diphtheria, Pertussis, Tetanus Vaccination: Yes Review of Systems - Review of Systems Notes: REVIEW OF SYSTEMS: CONSTITUTIONAL: -fevers, -chills EENT: -eye pain, -difficulty swallowing, -nasal congestion CARDIOVASCULAR: -chest pain, -syncope. RESPIRATORY: -cough, -SOB GASTROINTESTINAL: -abdominal pain, -nausea, -vomiting, -diarrhea GENITOURINARY: -dysuria, -hematuria MUSCULOSKELETAL: -back pain, -neck pain SKIN: -rash or skin lesions. HEMATOLOGIC: -easy bruising or bleeding. LYMPHATIC: -swollen, enlarged glands. NEUROLOGICAL: -altered mental status or loss of consciousness, +headache, + blurry vision PSYCHIATRIC: -anxiety, -depression. ALL OTHER SYSTEMS REVIEWED AND NEGATIVE. Physical Exam - Vital signs Vitals: Temp Pulse Resp BP Pulse Ox 97.9 F 66 20 169/81 H 99 02/24/18 14:17 02/24/18 14:17 02/24/18 14:17 02/24/18 14:17 02/24/18 14:17 - Notes Notes: PHYSICAL EXAMINATION: GENERAL: Well-appearing, well-nourished and in no acute distress. HEAD: Atraumatic, normocephalic. EYES: Pupils equal round and reactive to light, extraocular movements intact, sclera anicteric, conjunctiva are normal. ENT: nares patent, oropharynx clear without exudates. Moist mucous membranes. NECK: Normal range of motion, supple without lymphadenopathy LUNGS: Breath sounds clear to auscultation bilaterally and equal. No wheezes rales or rhonchi. HEART: Regular rate and rhythm without murmurs ABDOMEN: Soft, nontender, normoactive bowel sounds. No guarding, no rebound. No masses appreciated. EXTREMITIES: Normal range of motion, no pitting or edema. No cyanosis. NEUROLOGICAL: Cranial nerves grossly intact. Normal speech, normal gait. Normal sensory and motor exams. PSYCH: Normal mood, normal affect. SKIN: Warm, Dry, normal turgor, no rashes or lesions noted. Course - Re-evaluation Re-evalutation: Patient with headache, blurry vision and hypertension. She is 5 days , so will assess for preeclampsia and provide hydralazine for blood pressure. 02/24/18 15:[address] Raina Dominique about headache, blurry vision, elevated LFTs and hypertension. No protein in urine, but will treat patient as preeclampsia. She recommends admitting patient and will initiate magnesium upstairs in L&D. - Vital Signs Vital signs: Temp Pulse Resp BP Pulse Ox 97.9 F 66 20 166/95 H 99 02/24/18 14:17 02/24/18 14:17 02/24/18 17:18 02/24/18 17:18 02/24/18 17:18 - Laboratory Result Diagrams: 02/24/18 14:56 02/24/18 14:56 Laboratory results interpreted by me: 02/24/18 02/24/18 02/24/18 14:56 14:56 14:56 RBC 3.56 L Hgb 11.0 L Hct 31.7 L Sodium 145.5 H Chloride 112 H Total Bilirubin 0.1 L AST 174 H ALT 347 H Total Protein 6.2 L Albumin 3.3 L Urine Blood LARGE H Ur Leukocyte Esterase TRACE H Discharge - Discharge Clinical Impression: Blurry vision, Elevated LFTs, Possible Pre-eclampsia Hypertension Qualifiers: Hypertension type: unspecified Qualified Code(s): I10 - Essential (primary) hypertension Condition: Stable Disposition: ADMITTED INPATIENT Admitting Provider: Raina Dominique Unit Admitted: Labor and Delivery
[2018-02-24 15:34] LABS: APPEARANCE,URINE CLEAR; BILIRUBIN,URINE NEGATIVE (NEGATIVE); COLOR,URINE STRAW; GLUCOSE, URINE NEGATIVE (NEGATIVE); KETONES,URINE NEGATIVE (NEGATIVE); LEUKOCYTE ESTERASE,URINE TRACE (NEGATIVE); NITRITE,URINE NEGATIVE (NEGATIVE); PROTEIN,URINE NEGATIVE (NEGATIVE); URINE SPECIFIC GRAVITY 1.005; UROBILINOGEN,URINE NEGATIVE mg/dL (<2.0)
[2018-02-24 15:43] LABS: ALANINE AMINOTRANSFERASE 347 U/L (9-52); ALBUMIN 3.3 g/dL (3.5-5.0); ALKALINE PHOSPHATASE 91 U/L (38-126); ANION GAP 10 (5-19); ASPARTATE AMINO TRANSFERASE 174 U/L (14-36); BILIRUBIN,DIRECT 0.1 mg/dL (0.0-0.4); BILIRUBIN,TOTAL 0.1 mg/dL (0.2-1.3); BLOOD UREA NITROGEN 11 mg/dL (7-20); CALCIUM 8.7 mg/dL (8.4-10.2); CARBON DIOXIDE 24 mmol/L (22-30); CHLORIDE 112 mmol/L (98-107); GLUCOSE 91 mg/dL (75-110); PHOSPHORUS 4.5 mg/dL (2.5-4.5); POTASSIUM 3.7 mmol/L (3.6-5.0); SODIUM 145.5 mmol/L (137-145); TOTAL PROTEIN 6.2 g/dL (6.3-8.2)
[2018-02-24] MEDS ORDERED: MAGNESIUM SULFATE 4 GM/100 ML RTUPB IV ONE ×2 (18:03→18:10)
[2018-02-24] MEDS ORDERED: MAGNESIUM SULFATE 20 GM/500 ML RTUINJ IV ONE (18:10)
[2018-02-24] MEDS ORDERED: ACETAMINOPHEN 325 MG TABLET ONE (22:07)
--- NOTE | 2018-02-25 00:04 | EKG REPORT ---
SEVERITY:- NORMAL ECG - SINUS RHYTHM : Confirmed by: Georgie Petit 25-Feb-2018 00:03:47
[2018-02-25 00:30] LABS: ABSOLUTE BASOPHILS # (AUTO) 0.1 10^3/uL (0.0-0.2); ABSOLUTE EOSINOPHILS # (AUTO) 0.1 10^3/uL (0.0-0.6); ABSOLUTE LYMPHOCYTES (AUTO) 2.6 10^3/uL (0.5-4.7); ABSOLUTE MONOCYTES (AUTO) 0.5 10^3/uL (0.1-1.4); ABSOLUTE NEUT (AUTO) 5.6 10^3/uL (1.7-8.2); BASOPHILS % (AUTO) 1.1 % (0-2); EOSINOPHILS % (AUTO) 1.3 % (0-6); HEMATOCRIT 29.5 % (36.0-47.0); HEMOGLOBIN 10.4 g/dL (12.0-15.5); LYMPHOCYTES % (AUTO) 29.3 % (13-45); MEAN CORPUSCULAR HEMOGLOBIN 31.3 pg (27.0-33.4); MEAN CORPUSCULAR HGB CONC 35.3 g/dL (32.0-36.0); MEAN CORPUSCULAR VOLUME 89 fl (80-97); MONOCYTES % (AUTO) 5.7 % (3-13); PLATELET COUNT 316 10^3/uL (150-450); RED BLOOD COUNT 3.33 10^6/uL (3.72-5.28); RED CELL DISTRIBUTION WIDTH 13.4 % (11.5-14.0); SEGMENTED NEUTROPHILS % (AUTO) 62.6 % (42-78); TOTAL CELLS COUNTED % (AUTO) 100 %; WHITE BLOOD COUNT 8.9 10^3/uL (4.0-10.5)
[2018-02-25 00:45] LABS: ALANINE AMINOTRANSFERASE 268 U/L (9-52); ALBUMIN 2.9 g/dL (3.5-5.0); ALKALINE PHOSPHATASE 88 U/L (38-126); ANION GAP 10 (5-19); ASPARTATE AMINO TRANSFERASE 105 U/L (14-36); BLOOD UREA NITROGEN 9 mg/dL (7-20); CALCIUM 7.6 mg/dL (8.4-10.2); CARBON DIOXIDE 22 mmol/L (22-30); CHLORIDE 112 mmol/L (98-107); GLUCOSE 112 mg/dL (75-110); LDH 557 U/L (313-618); POTASSIUM 3.4 mmol/L (3.6-5.0); SODIUM 144.1 mmol/L (137-145); TOTAL PROTEIN 5.1 g/dL (6.3-8.2); URIC ACID 5.8 mg/dL (2.5-7.0)
[2018-02-25 00:50] LABS: BILIRUBIN,TOTAL < 0.1 mg/dL (0.2-1.3)
--- NOTE | 2018-02-25 01:11 | Admission Physical ---
Datetime Report Generated by CPN: 02/25/2018 01:11 CURRENT ADMISSION Chief Complaint: Other Chief Complaint Other: Headache and blurry vision. 5 days Indication for Induction: Not Applicable Indication for Induction- Other: AMA Admit Impression : Medical Complication Admit Impression- Other: Post Pre e with elevated LFTs. Admit Plan: Admit to Unit Admit Plan- Other: Magnesium for Pre E. Hydralyzine prn for severe range pressures. Will start procardia post mag. ALLERGIES Medication Allergies: Yes Medication Allergies: hydrocodone bitartrate/MO/itching (02/24/2018) Latex: Latex Allergies Food Allergies: raspberries; cranberries OBSTETRICAL HISTORY EDC: 02/23/2018 00:00 : 11 Para: 6 Term: 6 : 0 SAB: 4 IAB: 0 Ectopic: 0 Livin Cesareans: 0 VBACs: 0 Multiple Births: 0 Gestational Diabetes: Yes Rh Sensitization: No Incompetent Cervix: No NIKI: No Infertility: No ART Treatment: No Uterine Anomaly: No IUGR: No Hx Previous C/S: No Macrosomia: No Hx Loss/Stillborn: No PIH: Yes Hx : No Placenta Previa/Abruption: No Depression/PP Depression: Yes PTL/PROM: No Post Hemorrhage: No Current Procedures: Ultrasound; NST Obstetrical History Comments: G1- 39 weeks 1998 G2- 39 weeks 1999 G3- 38 weeks 2001 G4- 38 weeks 2003 G5- 39 weeks 2006 G6- SAB G7- SAB G8- SAB G9- 41 weeks 2010 G10- SAB G11- current SEE RECORDS Alcohol: No Marijuana : No Cocaine: No Other Illicit Drugs: No Cigarettes: Former Smoker. [id number] MEDICAL HISTORY Diabetes: Yes Diabetes Type: Gestational Diabetes Blood Transfusion: No Pulmonary Disease (Asthma, TB): No Breast Disease: No Hypertension: No School L[employer] Surgery: No Heart Disease: No Hosp/Surgery: Yes Autoimmune Disorder: No Anesthetic Complications: No Kidney Disease: No Abnormal Pap Smear: No Neuro/Epilepsy: No Psychiatric Disorders: No Other Medical Diseases: No Hepatitis/Liver Disease: No Significant Family History: No Varicosities/Phlebitis: No Trauma/Violence : No Thyroid Dysfunction: No Medical History Comments: tonsillectomy 1989, D_C 2005 INFECTIOUS HISTORY Gonorrhea: No Genital Herpes: No Chlamydia: No Tuberculosis: No Syphilis: No Hepatitis: No HIV/AIDS Exposure: No Rash or Viral Illness: No HPV: No PHYSICAL EXAM General: Normal HEENT: Normal Neurologic: Normal Thyroid: Normal Heart: Normal Lungs: Normal Breast: Normal Back: Normal Abdomen: Normal Genitourinary Exam: Normal Extremities: Abnormal DTRs: Abnormal Pelvic Type: Adequate Physical Exam Comments: +3 DTRs. 2+ BLE edema Vital Signs: Reviewed; Within Normal Limits VAGINAL EXAM Dilatation: 3 Effacement: 50 Station: -2 Contraction Comments: 2-4 MEMBRANES Pooling: Negative Membranes: Ruptured Amniotic Fluid Color: Clear FETUS A EGA: 40.2 Monitoring: External US FHR- Baseline: 130 Variability: Moderate 6-25bpm Accelerations: 15X15 Decelerations: None FHR Category: Category I Estimated Weight (gm): 3700 Presentation: Vertex PLANS FOR LABOR AND DELIVERY Labor and Delivery: Placenta Request Pain Management: Epidural Feeding Preference: Breast Benefit of Breast Feed Discussed: Yes Circumcision: N/A INFORMED CONSENT Informed Consent Obtained: Vaginal Delivery Signature: with User ID: [email or web address]
[2018-02-25] MEDS ORDERED: MAGNESIUM SULFATE 20 GM/500 ML RTUINJ IV ONE (04:46)
[2018-02-25] MEDS ORDERED: ACETAMINOPHEN 325 MG TABLET ONE ×2 (04:54→13:02)
[2018-02-25] MEDS ORDERED: NIFEDIPINE 30 MG TAB.ER.24 PO SCH (07:00)
[2018-02-25] MEDS ORDERED: ACETAMINOPHEN 325 MG TABLET PO PRN (13:10)
[2018-02-25] MEDS ORDERED: OXYCODONE-ACETAMINOPHEN 5-325 MG TABLET PO PRN (17:47)
[2018-02-25] MEDS: HYDRALAZINE HCL 10 MG TABLET PO SCH ×2 (19:28→23:34)
[2018-02-26] MEDS: HYDRALAZINE HCL 10 MG TABLET PO SCH ×2 (06:44→12:12)
[2018-02-26 11:30] LABS: ABSOLUTE BASOPHILS # (AUTO) 0.1 10^3/uL (0.0-0.2); ABSOLUTE EOSINOPHILS # (AUTO) 0.1 10^3/uL (0.0-0.6); ABSOLUTE MONOCYTES (AUTO) 0.4 10^3/uL (0.1-1.4); ABSOLUTE NEUT (AUTO) 7.9 10^3/uL (1.7-8.2); BASOPHILS % (AUTO) 0.7 % (0-2); EOSINOPHILS % (AUTO) 0.9 % (0-6); HEMATOCRIT 35.4 % (36.0-47.0); HEMOGLOBIN 12.4 g/dL (12.0-15.5); MEAN CORPUSCULAR HEMOGLOBIN 30.9 pg (27.0-33.4); MEAN CORPUSCULAR HGB CONC 34.9 g/dL (32.0-36.0); MEAN CORPUSCULAR VOLUME 89 fl (80-97); MONOCYTES % (AUTO) 3.9 % (3-13); PLATELET COUNT 369 10^3/uL (150-450); RED CELL DISTRIBUTION WIDTH 13.5 % (11.5-14.0); SEGMENTED NEUTROPHILS % (AUTO) 75.5 % (42-78); TOTAL CELLS COUNTED % (AUTO) 100 %; WHITE BLOOD COUNT 10.5 10^3/uL (4.0-10.5)
[2018-02-26] MEDS ORDERED: LABETALOL HCL 200 MG TABLET PO ONE (11:30)
[2018-02-26 11:42] LABS: ALANINE AMINOTRANSFERASE 220 U/L (9-52); ALBUMIN 3.4 g/dL (3.5-5.0); ALKALINE PHOSPHATASE 92 U/L (38-126); ANION GAP 9 (5-19); ASPARTATE AMINO TRANSFERASE 64 U/L (14-36); BILIRUBIN,DIRECT 0.2 mg/dL (0.0-0.4); BILIRUBIN,TOTAL 0.2 mg/dL (0.2-1.3); BLOOD UREA NITROGEN 9 mg/dL (7-20); CALCIUM 9.1 mg/dL (8.4-10.2); CARBON DIOXIDE 23 mmol/L (22-30); CHLORIDE 112 mmol/L (98-107); GLUCOSE 89 mg/dL (75-110); POTASSIUM 4.2 mmol/L (3.6-5.0); SODIUM 144.4 mmol/L (137-145); TOTAL PROTEIN 6.1 g/dL (6.3-8.2)
[2018-02-26 13:50] VITALS: BP 142/92
--- NOTE | 2018-02-26 15:42 | PDOC DISCHARGE SUMMARY ---
Final Diagnosis Discharge Date: 02/26/18 - reviewed current and past vitals as well as labs and pt status with Dr. Dominique. Pt. understands warning s/s and reasons to Return to hospital prior to f/u visit on sunday. Pt. reports she's feeling even better than before , bilateral lower extremety edema not present, no headache or other concerns at this time. - Final Diagnosis (1) Pre-eclampsia Is this a current diagnosis for this admission?: Yes Discharge Data - Discharge Medication Prescriptions: Hydralazine HCl [Apresoline 10 mg Tablet] 10 mg PO Q6 #60 tablet Labetalol HCl [Normodyne 200 mg Tablet] 200 mg PO Q12 #60 tablet Home Medications: Hydralazine HCl [Apresoline 10 mg Tablet] 10 mg PO Q6 #60 tablet 02/26/18 Labetalol HCl [Normodyne 200 mg Tablet] 200 mg PO Q12 #60 tablet 02/26/18 Reason(s) for Admission: Other - pre-eclampsia - Diagnosis Test Laboratory: Temp Pulse Resp BP Pulse Ox 99.1 F 72 18 157/86 H 99 02/26/18 09:57 02/26/18 10:14 02/26/18 09:57 02/26/18 10:14 02/26/18 09:57 02/25/18 02/26/18 00:20 11:19 RBC 3.33 L 4.00 Hgb 10.4 L 12.4 Hct 29.5 L 35.4 L - Discharge information/Instructions Discharge Activity: Activity As Tolerated, Balance Activity w/Rest, No Lifting Over 10 Pounds, Pelvic Rest, Slowly Increase Activity, Supervised Activity, No tub bath Discharge Diet: Regular Disposition: HOME, SELF-CARE Follow [facility] with: [facility] in: 3, Days
[2018-02-26] MEDS ORDERED: LABETALOL HCL 200 MG TABLET PO SCH (22:00)
== END 2018-02-26 14:08 | disposition home or self-care (01) | DRG 776 ==
LOC: ER 14:12 → EH 16:47 → LR 16:47 → UNDOADMIN 16:47 → 2S 02-25 08:33
PROVIDERS: ADMIT Obstetrics & Gynecology; ATTEND Obstetrics & Gynecology
DX: O14.95 Unspecified pre-eclampsia, complicating the puerperium (principal); O24.439 Gestational diabetes mellitus in the puerperium, unspecified control; Z88.6 Allergy status to analgesic agent; Z91.040 Latex allergy status; Z91.018 Allergy to other foods; Z87.891 Personal history of nicotine dependence
CPT/HCPCS: 36415; 80053; 81001; 83615; 83735; 84100; 84550; 85025; 85384; 85610; 85730; 93005; 93010; 96365; 96375; 99285; J0360; J3475; J3490